=== PATIENT | male | born 1995 | race Caucasian/White ===

== ENCOUNTER 2023-02-12 12:48 | Emergency (ER) | payer BC, SELFPAY ==
[2023-02-12 13:25] VITALS: BMI 27.5
[2023-02-12 13:29] VITALS: BP 130/82; PULSE 57; RESP 16; TEMP 36.6; O2SAT 98
--- NOTE | 2023-02-12 14:05 | ED.GENADULT ---
HPI - General Adult General Chief complaint: Skin/Abscess/Foreign Body Stated complaint: enlarged lymph nodes Time Seen by Provider: 02/12/23 13:31 Source: patient, RN notes reviewed and old records reviewed Mode of arrival: ambulatory History of Present Illness HPI narrative: 28-year-old male with no significant past medical history presenting to the ED complaining of head cold x few days which progressed to right sided inflamed lymph node and sore throat. Denies fever/chills, ear pain, drainage from ear, difficulty/inability to swallow, SOB/CP, recent travel. Onset (ago): day(s) Related Data Previous Rx's Medication Instructions Recorded cefdinir 300 mg capsule 300 mg PO BID 7 days #14 caps 02/12/23 Allergies Allergy/AdvReac Type Severity Reaction Status Date / Time amoxicillin [From AUGMENTIN] Allergy Unknown DIARRHEA Verified 02/12/23 13:25 clavulanic acid Allergy Unknown DIARRHEA Verified 02/12/23 13:25 [From AUGMENTIN] Review of Systems Review of Systems: Constitutional: No Fever, No Chills ENT/Mouth: No Ear Pain, No Nasal Congestion, + Sinus Pain, No Hoarseness, + sore throat, No Rhinorrhea, No Swallowing Difficulty Cardiovascular: No Chest Pain, No SOB Respiratory: No Cough, No Sputum Gastrointestinal: No Nausea, No Vomiting, No Abdominal pain Musculoskeletal: No joint pain, No Myalgias, No Joint Swelling Skin: No Skin Lesions, No rash Neuro: No Weakness Yes all other systems are reviewed and are negative Constitutional: Constitutional: Reports as per [facility] Past Medical History Attestation statement: The following information was validated with the patient. Source: old records reviewed Social History Social History Alcohol intake: current Alcohol intake frequency: holidays/special occasions only Smoked in Last 30 Days: No Use of substances other than those prescribed or required for medical reasons: No Advance Directives: No Advance Directives Information Provided: Yes Physical Exam ED Vital Signs: Vital Signs - 24 hr 02/12/23 13:29 Temperature 97.8 F Pulse Rate 57 Respiratory Rate 16 Blood Pressure 130/82 Pulse Oximetry 98 Oxygen Delivery Method Room Air BMI result Body Mass Index 27.5 Const General: cooperative, healthy appearing and no acute distress Orientation/consciousness: patient oriented x3 Limitations: no limitations HENMT Other: + right-sided submandibular lymphadenopathy appreciated. No erythema or warmth Head: Yes normal to inspection and Yes atraumatic Ears: hearing grossly normal bilaterally, external ears normal, TM's normal bilaterally and mastoids normal General nose exam: Normal external nose present Face and sinus: Yes normal facial exam Mouth: Normal oral and palatal mucosa present, no audible dysphonia and no drooling Throat: Yes uvula midline, No peritonsillar mass, Yes posterior oropharynx abnormal (Erythematous. No exudates), No uvula laterally displaced and No uvular edema Eyes General: appearance normal, both eyes and all related structures EOM: EOMs intact bilaterally Neck Neck: Yes normal visual inspection, Yes no meningeal signs and No anterior neck swelling Resp Effort & Inspection: normal respiratory effort, no respiratory distress and no stridor Auscultation: clear to auscultation bilaterally and no wheezes Cardio Rate: regular rate Heart sounds: S1 normal heart sound present and S2 normal heart sound present Skin Rashes: no rashes Wounds: no wounds Neuro General: patient oriented x3, tone normal and no meningeal signs Cranial nerves: Yes CN's II-XII intact bilaterally Gait exam (Neuro): Normal gait present Extrem General: Yes normal to inspection Course Course Course Narrative: -1540--influenza A positive. Rapid strep negative. > due to 1 sided lymphadenopathy will treat with antibiotics. Discussed Tamiflu however patient would like to defer. Results discussed with patient including worrisome signs and symptoms and strict return precautions, and when to return to the emergency department. They verbalized understanding and feel safe for discharge at this time. Medical Decision Making Medical Decision Making [facility] Narrative: 28-year-old male with no significant past medical history presenting to the ED complaining of head cold x few days which progressed to right sided inflamed lymph node and sore throat. On exam vital signs stable, NAD, nontoxic appearing, handling secretions, no respiratory distress or compromise. Talking in complete sentences. Right-sided submandibular lymphadenopathy noted. Posterior oropharyngeal erythema appreciated. Uvula midline. No exudates. Concern for strep pharyngitis vs viral syndrome vs mononucleosis. Lower suspicion/no evidence of retropharyngeal abscess/[employer] at this time. Plan: Viral testing, rapid strep, Monospot Please refer to course for remaining clinical decision making, interpretation of labs/imaging results, and discussions with consultants and/or family members. Differential Diagnosis Differential Diagnoses: The differential diagnosis associated with the presentation includes As above Lab Data MDM Lab Attestation statement: I reviewed the patient's lab results. Labs: Lab Results 02/12/23 Range/Units 14:25 Monoscreen Negative (Negative) Influenza Type A (PCR) POSITIVE A (Negative) Influenza Type B (PCR) NEGATIVE (Negative) RSV RNA Qual (PCR) NEGATIVE (Negative) SARS-CoV-2 RNA (RT-PCR) NEGATIVE (Negative) S. pyogenes GrpA ANDREA Negative (Negative) External Record Review External record reviewed: Inpatient record, Office record, Outpatient record, Prior outpatient labs, Prior outpatient radiology, Primary care record and Outside ED record Tests considered The following testing was considered but not selected: As above Prescription Management I considered prescription management with: Pain Medication and Antibiotic Discharge Plan Discharge Clinical Impression: Influenza A, Lymphadenopathy Patient Disposition: Home, Self-Care Instructions: Lymphadenopathy (ED), Influenza (DC) Additional Instructions: You have the flu Due to your one-sided inflamed lymph nodes Cefdinir is antibiotic please take as prescribed No antibiotics are indicated at this time Make sure you are staying hydrated. Drink plenty of fluids. Rest Alternate Tylenol and Motrin at home as needed for body aches and fever Follow-up with your doctor. If symptoms persist or worsen return to the emergency department *If you are a child & not tolerating liquid or urinating for more than 6 hours, or fevers are uncontrolled with medications at home, return to the emergency department* Prescriptions: New cefdinir 300 mg capsule 300 mg PO BID 7 Days Qty: 14 0RF Referrals: Physician,None [Primary Care Provider] - Stand Alone Forms: Work/School Release
--- NOTE | 2023-02-12 14:28 | PC.NURSE ---
labs/swabs obtained and sent to lab.
[2023-02-12 14:55] LABS: IDNOW Serial# 08D9AD1C; Strep A Nucleic Acid Negative (Negative)
[2023-02-12 15:02] LABS: Monotest Negative (Negative)
[2023-02-12 15:36] LABS: Influenza A PCR POSITIVE (Negative); Influenza B PCR NEGATIVE (Negative); Resp Syncy Virus RNA Qual PCR NEGATIVE (Negative); SARS COV2 PCR INHOUSE NEGATIVE (Negative)
== END 2023-02-12 15:51 | disposition home or self-care (01) ==
PROVIDERS: Physician Assistant; Emergency Provider Emergency Medicine
DX: J10.1 Influenza due to other identified influenza virus with other respiratory manifestations (principal); R59.1 Generalized enlarged lymph nodes; Z20.822 Contact with and (suspected) exposure to COVID-19; Z79.899 Other long term (current) drug therapy; Z20.828 Contact with and (suspected) exposure to other viral communicable diseases
CPT/HCPCS: 0241U; 36415; 86308; 87651; 99283; 99284

== ENCOUNTER 2023-08-18 23:22 | Emergency (ER) | payer BC, SELFPAY ==
--- NOTE | ~2023-08-18 | XR_ITS ---
EXAMINATION: XR CHEST CLINICAL INFORMATION: Pain in xiphoid process COMPARISON: None available. TECHNIQUE: 2 AP frontal radiographs of the chest FINDINGS: Normal appearance of the cardiomediastinal structures. No effusions or pneumothoraces. Normal pattern of pulmonary vasculature. No focal pulmonary consolidation. Normal appearance of the clavicles and visualized sternum. XR/XR chest 1V IMPRESSION: Normal chest.
[2023-08-18 23:27] VITALS: BP 137/92; PULSE 66; RESP 18; TEMP 36.6; O2SAT 98; BMI 28.1
[2023-08-18 23:43] LABS: Basophils Absolute Auto 0.1 X10*3/uL (0.0-0.2); Basophils Percent Auto 0.7 % (0-2); Eosinophils Absolute Auto 0.4 X10*3/uL (0.0-0.4); Hematocrit 48.2 % (42.0-52.0); Hemoglobin 16.5 g/dl (14.0-18.0); Imm Gran Abs Auto 0.04 X10*3/uL (0.00-0.03); Imm Gran Pct Auto 0.4 % (0.0-0.4); Lymphocytes Absolute Auto 2.8 X10*3/uL (1.2-4.9); Lymphocytes Percent Auto 30.7 % (20-40); MANUAL DIFF FLAG NO; Mean Corpuscular HGB Conc 34.2 g/dl (31.0-36.0); Mean Corpuscular Hemoglobin 29.8 pg (27.0-33.0); Mean Platelet Volume 8.9 fL (9.4-12.4); Monocytes Absolute Auto 0.5 X10*3/uL (0.1-1.2); Monocytes Percent Auto 5.8 % (2-11); Neutrophils Absolute Auto 5.3 x10*3/uL (2.0-8.3); Neutrophils Percent Auto 58.4 % (45-73); Platelet Count 308 X10*3/uL (160-400); Red Blood Count 5.54 X10*6/uL (4.60-5.80); Red Cell Distribution Width 12.2 % (11.0-16.0)
[2023-08-18 23:59] LABS: Alanine Aminotransferase 149 U/L (0-40); Albumin Level 4.9 g/dL (3.5-5.0); Alkaline Phosphatase 122 U/L (39-117); Anion Gap 15 (12-20); Aspartate Amino Transferase 41 U/L (5-37); Bilirubin Total 0.9 mg/dL (0.0-1.0); Blood Urea Nitrogen 12 mg/dL (9-16); Calcium 10.2 mg/dL (8.4-10.2); Carbon Dioxide 28 mmol/L (22-29); Chloride 102 mmol/L (96-108); Creatinine Clr Calc Pharmacy 153.3; Estimated Glomerular Filt Rate > 60; Glucose Random 102 mg/dL (60-115); Potassium 3.9 mmol/L (3.3-5.1); Sodium 141 mmol/L (135-145)
[2023-08-19 00:29] VITALS: BP 145/94; PULSE 52; RESP 17; TEMP 36.4; O2SAT 98
--- NOTE | 2023-08-19 00:47 | ED.GENADULT ---
HPI - General Adult General Chief complaint: Abdominal Pain Stated complaint: ? Hernia Time Seen by Provider: 08/19/23 00:42 Source: patient Mode of arrival: ambulatory Limitations: no limitations History of Present Illness ED Provider: Dr. Tati Bruce HPI narrative: Patient comes to the emergency room complaining of feeling lump below his sternum. Patient states that he has not had any injuries, denies chest pain or shortness of breath, no abdominal pain. Patient states that he was running his hands through his abdomen a few nights ago, and noticed the heart lump in the epigastric area. Patient denies nausea vomiting or diarrhea. Related Data Previous Rx's ?Medication ?Instructions ?Recorded cefdinir 300 mg capsule 300 mg PO BID 7 days #14 caps 02/12/23 Allergies Allergy/AdvReac Type Severity Reaction Status Date / Time amoxicillin [From AUGMENTIN] Allergy Unknown DIARRHEA Verified 08/18/23 23:28 clavulanic acid Allergy Unknown DIARRHEA Verified 08/18/23 23:28 [From AUGMENTIN] Review of Systems Review of Systems: Constitutional : No Weight loss, No Fever, No Chills, No Night Sweats, No Fatigue, No Malaise ENT/Mouth : No Hearing loss, No Ear Pain, No Nasal Congestion, No Sinus Pain, No Hoarseness, No sore throat, No Rhinorrhea, No Swallowing Difficulty Eyes: No Eye Pain, No Swelling, No Redness, No Foreign Body, No Discharge, No Vision Changes Cardiovascular : No Chest Pain, No SOB, No Dyspnea on Exertion, No Orthopnea, No Edema, No Palpitations Respiratory : No Cough, No Sputum, No Wheezing, No Smoke Exposure, No Dyspnea Gastrointestinal : No Nausea, No Vomiting, No Diarrhea, No Constipation, No abdominal Pain, No Hematochezia, No Melena Genitourinary : no irregular bleeding, No Dysuria, No Urinary Frequency, No Hematuria, No Urinary Incontinence, No Urgency, No Flank Pain, No Urinary Flow Changes, No Hesitancy Musculoskeletal : No joint pain, No Myalgias, No Joint Swelling, complaining of a hard lump in the epigastric area Skin : No Skin Lesions, No rash Neuro : No Weakness, No Numbness, No Paresthesias, No Loss of Consciousness, No Dizziness, No Headache Psych : No Anxiety/Panic, No Depression, No SI/HI/AH/VH, No Social Issues, Heme/Lymph: No Bruising, No Bleeding,No Lymphadenopathy Endocrine : No Polyuria, No Polydipsia, No Temperature Intolerance [facility] Social History Social History Alcohol intake: current Alcohol intake frequency: a few times a week Smoked in Last 30 Days: No Use of substances other than those prescribed or required for medical reasons: No Advance Directives: No Advance Directives Information Provided: Yes Physical Exam ED Vital Signs: Vital Signs - 24 hr 08/18/23 23:27 08/19/23 00:29 Temperature 97.8 F 97.6 F Pulse Rate 66 52 Respiratory Rate 18 17 Blood Pressure 137/92 H 145/94 H Pulse Oximetry 98 98 Oxygen Delivery Method Room Air Room Air BMI result Body Mass Index 28.1 Const Other: Appearance: Alert. Oriented X3. No acute distress. Eyes: Pupils equal, round and reactive to light. ENT: Pharynx normal. Neck: Normal inspection. Neck supple. No lymph nodes noted. No crepitus CVS: Normal heart rate and rhythm. Pulses normal. Normal S1 and S2 Respiratory: No respiratory distress. Breath sounds normal. No Wheezing. No rales Abdomen: Soft and nontender. No rigidity. No distention. Patient showed me where he feels a hard lump, it is his xiphoid process Skin: Skin warm and dry. Normal skin color. Normal skin turgor. Extremities: No lower extremity edema. No Lacerations. No Rash Neuro: Oriented X 3. No motor deficit. No sensory deficit. Moving all extremities. No slurred speech. CN 2 through 12 grossly intact Psych: calm, cooperative, normal affect Medical Decision Making Medical Decision Making [facility] Narrative: I discussed the physical exam with the patient, the lump that he is feeling is his xiphoid process. -at this time, no further treatment needed. Patient denies any pain, no abdominal symptoms. -chest x-ray normal Lab Data [facility] Lab Attestation statement: I reviewed the patient's lab results. 08/18/23 23:38 08/18/23 23:38 Labs: Lab Results 08/18/23 Range/Units 23:38 WBC 9.0 (4.8-10.8) X10*3/uL RBC 5.54 (4.60-5.80) X10*6/uL Hgb 16.5 (14.0-18.0) g/dl Hct 48.2 (42.0-52.0) % MCV 87.0 (80.0-98.0) fL MCH 29.8 (27.0-33.0) pg MCHC 34.2 (31.0-36.0) g/dl RDW 12.2 (11.0-16.0) % Plt Count 308 (160-400) X10*3/uL MPV 8.9 L (9.4-12.4) fL Immature Gran % (Auto) 0.4 (0.0-0.4) % Neut % (Auto) 58.4 (45-73) % Lymph % (Auto) 30.7 (20-40) % [place] % (Auto) 5.8 (2-11) % Eos % (Auto) 4.0 (0-4) % Baso % (Auto) 0.7 (0-2) % Lymph # (Auto) 2.8 (1.2-4.9) X10*3/uL [place] # (Auto) 0.5 (0.1-1.2) X10*3/uL Eos # (Auto) 0.4 (0.0-0.4) X10*3/uL Baso # (Auto) 0.1 (0.0-0.2) X10*3/uL Abs Immat Gran (auto) 0.04 H (0.00-0.03) X10*3/uL Absolute Neuts (auto) 5.3 (2.0-8.3) x10*3/uL Absolute Nucleated RBC 0.000 (0.0-0.012) X10*3/uL Nucleated RBC % (auto) 0.0 (0.0-0.2) /100WBC Sodium 141 (135-145) mmol/L Potassium 3.9 (3.3-5.1) mmol/L Chloride 102 (96-108) mmol/L Carbon Dioxide 28 (22-29) mmol/L Anion Gap 15 (12-20) BUN 12 (9-16) mg/dL Creatinine 0.92 (0.5-1.4) mg/dL Estim Creat Clear Calc 153.3 Estimated GFR > 60 Random Glucose 102 (60-115) mg/dL Calcium 10.2 (8.4-10.2) mg/dL Total Bilirubin 0.9 (0.0-1.0) mg/dL AST 41 H (5-37) U/L ALT 149 H (0-40) U/L Alkaline Phosphatase 122 H (39-117) U/L Total Protein 8.0 (6.5-8.0) g/dL Albumin 4.9 (3.5-5.0) g/dL Independent Interpretation I performed an independent interpretation of an: Plain X-Ray Radiology Impression Discussion of test interpretation with radiology: I have reviewed the radiologist's reading. Radiologist Impression: Normal appearance of the cardiomediastinal structures. No effusions or pneumothoraces. Normal pattern of pulmonary vasculature. No focal pulmonary consolidation. Normal appearance of the clavicles and visualized sternum. XR/XR chest 1V IMPRESSION: Normal chest. Discharge Plan Discharge Clinical Impression: Normal abdominal exam Patient Disposition: Home, Self-Care Instructions: Normal Exam (ED) Additional Instructions: Please follow-up with your primary care physician tomorrow. If you have any worsening or new symptoms, please return to the emergency room or call 911 Prescriptions: No Action cefdinir 300 mg capsule 300 mg PO BID 7 Days Qty: 14 0RF Print Language: Greenlandic
[2023-08-19 02:13] VITALS: BP 131/65; PULSE 75; RESP 18; TEMP 36.9; O2SAT 94
[2023-08-19 02:15] VITALS: BP 131/65; PULSE 75; RESP 18; TEMP 36.9; O2SAT 94
== END 2023-08-19 02:16 | disposition home or self-care (01) ==
PROVIDERS: Emergency Provider Emergency Medicine
DX: R19.06 Epigastric swelling, mass or lump (principal); Z71.1 Person with feared health complaint in whom no diagnosis is made
CPT/HCPCS: 36415; 71045; 80053; 85025; 99283; 99284

== ENCOUNTER 2024-01-08 09:51 | Outpatient (AMB) | payer BC, SELFPAY ==
--- NOTE | 2024-01-08 10:15 | MHC.PC.OV ---
Vital Signs 01/08/24 10:27 Height 6 ft 3 in Weight 237 lb BMI 29.6 BP 118/88 Blood Pressure Location Rt brachial Position Sitting Respiration 16 Pulse 75 Pulse Source Pulse Oximeter Pulse Oximetry (%) 96 Oxygen Delivery Method Room Air Intake Visit Reasons: Est. care / needs a physical Intake Note: New patient visit Camp Manager Required: No Allergies amoxicillin [From AUGMENTIN] Allergy (Unknown, Verified 01/08/24 10:49) DIARRHEA clavulanic acid [From AUGMENTIN] Allergy (Unknown, Verified 01/08/24 10:49) DIARRHEA Medication List - Last Reconciled 01/08/24 by Beata Drake, GAS LINE REPAIRER- epinephrine 0.3 mg IM Q15M PRN Tobacco use date assessed: 01/08/24 Dental Screening Dental Screen Date: 01/08/24 Did you have a dental visit in the last 12 months?: No Did you have a dental problem in the last 6 months where you did not have access to dental care?: No Was dental information given to patient?: Patient has dentist HPI HPI Comments History of Present Illness Details The patient is a 28-year-old male presenting as a new patient to [facility] care for a CPE. Medical history is benign except recent acute allergic reaction and musculoskeletal pain. He reports a significant allergic reaction in July, characterized by diffuse urticaria persisting for two to three weeks. This episode occurred suddenly while dining at a restaurant with family, resulting in symptoms of nausea, pallor, profuse sweating, and bradycardia. The cause of the allergy remains unidentified, and the patient has been prescribed an EpiPen for emergency use. The patient has a known allergy to amoxicillin and amoxicillin-clavulanate (Augmentin). Additionally, the patient experiences pain in the outer right calf, which emerged after an increase in physical activity and possibly linked to running. These symptoms began in early October and were exacerbated by exertion. The patient has attempted home management with icing and ceased high-impact activities like running. 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 - Family includes three brothers and two sisters, all in good health. Denies significant family hx other than Dad with HTN Health Maintenance - Tetanus vaccination discussed, not up to date; recommended for protection due to occupational risk. Declined flu vaccine - Referral for allergy testing planned. - Routine labs for diabetes and kidney disease screening discussed but not recently performed. Physical Exam General: Well developed, well nourished, in no acute distress. Appears stated age. Head: Normocephalic, atraumatic. Eyes: Pupils are equal, round and reactive to light and accommodation. Conjunctivae are clear. Vision grossly normal. Ears: Tympanic membranes clear bilaterally, external auditory canal within normal limits. Nose: Patent, without discharge. Mouth: There are no ulcers or lesions noted. No inflammation, no post nasal drip, no plaques nor exudates. Neck: Supple, no adenopathy or thyromegaly. Lungs: Clear to auscultation bilaterally. No rales, rhonchi or wheeze noted. Good air flow in all hdz. Heart: Regular rate and rhythm. No murmurs, click, rubs or gallops are noted. Abdomen: Bowel sounds present in all quadrants. The abdomen is soft, nontender, with no masses or organomegaly noted. No hernias are noted. Musculoskeletal: Joints are nontender, without swelling, redness, or effusions. Range of motion is observed to be normal. Patient reports pain in the outer part of the right calf, possibly due to a strain or tear, exacerbated by running. Pulses: Peripheral pulses are equal and palpable bilaterally. Extremities: No clubbing, cyanosis nor edema is noted. Neurologic: Gait and station normal. Cranial Nerves 2-12 intact. Motor strength grossly symmetrical and intact. No sensory loss. Balance normal. Skin: No rashes, ulcers, or lesions noted. Turgor is good. Skin color is good. Hair and nails are without abnormalities. Psych: Normal eye contact, affect and mood appropriate, and normal interactions. Patient is alert and appropriate to context. Depression screen negative. No anxiety reported. Plan - Acute Allergic Reaction with Anaphylaxis: Referral for allergy testing with [facility] in progress to identify causative agent. Continued prescription for EpiPen recommended for emergency use due to risk of anaphylactic reactions. - Calf Muscle Strain: Advise avoidance of running and other high-impact activities. Recommend gentle stretching and gradual reintroduction of physical activity. Consider massage therapy. Monitor for improvement. - General Health Maintenance: Administer tetanus vaccine due to occupational hazards. Recommend routine bloodwork for general wellness. Patient was informed and verbally consented to the use of an ambient scribe for clinic note documentation during this visit. Discussion Notes I reviewed the significance of the patient's acute allergic reaction, emphasizing the necessity of carrying an EpiPen. We discussed the potential benefits of allergy testing to prevent future episodes. I explained the management of the calf muscle strain, recommending rest and stretching to facilitate recovery. The importance of receiving a tetanus shot was highlighted, particularly due to his job-related risks. We agreed on the necessity of planned laboratory tests for routine health monitoring. Follow-up contact from the allergy referral team was anticipated, ensuring coordinated care. Patient Instructions - Carry an EpiPen at all times in case of another severe allergic reaction. - Follow through with allergy testing as scheduled. - Avoid running and apply ice to the affected calf area; engage in light stretching exercises. - Receive a tetanus vaccine today. - Encourage routine labs to monitor general health. - Return to clinic if symptoms worsen or new symptoms arise. 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 1. Little interest or pleasure in doing things: not at all 2. Feeling down, depressed, or hopeless: not at all 3. Trouble falling or staying asleep, or sleeping too much: not at all 4. Feeling tired or having little energy: not at all 5. Poor appetite or overeating: not at all 6. Feeling bad about yourself - or that you are a failure or have let yourself or your family down: not at all 7. Trouble concentrating on things, such as reading the newspaper or watching television: not at all 8. Moving or speaking so slowly that other people could have noticed. Or the opposite - being so fidgety or restless that you have been moving around a lot more than usual: not at all 9. Thoughts that you would be better off or of hurting yourself in some way: not at all Total score: 0 Depression Screening Interpretation: Negative Depression Screening Done: Yes 37151 - PHQ-9 Billing: Yes Source: Developed by Drs. Lester Moore, Allie Pitts, Lino Mayes and colleagues, with an educational chung from [employer]. Thrive Questionnaire Date Thrive assessed: 01/08/24 I am a: Patient What is your living situation today?: I have a steady place to live Within the past 12 months, did the food you bought not last and you didn't have the money to get more?: Never true Within the past 12 months, did you worry whether your food would run out before you got money to buy more?: Never true Do you have trouble paying for medicines?: No Do you have trouble getting transportation to medical appointments?: No Do you have trouble paying your heating and electricity bill?: No Do you have trouble taking care of your child, family member or friend?: No Do you have trouble with day-to-day activities such as bathing, preparing meals, shopping, managing finances, etc.?: No Are you currently unemployed and looking for a job?: No Are you interested in more education?: No Please select the resources that you would like help with: None Currently or been in a relationship where the following occur: No concerns reported THRIVE Score: 0 AUDIT C Alcohol Use Questionnaire (AUDIT-C) 1. How often do you have a drink containing alcohol?: 2-4 times a month 2. How many drinks containing alcohol do you have on a typical day when you are drinking?: 5 or 6 3. How often do you have six or more drinks on one occasion?: Monthly Total Score: 6 Score Reviewed/Action Taken: Yes JARAD-7 AMB Questionnaire JARAD-7 Date JARAD - 7 assessed: 01/08/24 Feeling nervous, anxious, or on edge: 0 = Not at all Not being able to stop or control worryin = Not at all Worrying too much about different things: 0 = Not at all Trouble relaxin = Not at all Being so restless that it is hard to sit still: 0 = Not at all Becoming easily annoyed or irritable: 0 = Not at all Feeling afraid as if something awful might happen: 0 = Not at all Total JARAD-7 score (0-4 normal; 5-9 mild; 10-14 moderate; 15-21 severe): 0 Source: Developed by Drs. Lester Moore, Allie Pitts, Lino Mayes and colleagues, with an educational chung from [employer]. JARAD-7 Assessment Billing JARAD-7 Assessment Tool: JARAD-7 Assessment 51694 Physical exam (Primary Care) Vital Signs: Last Vital Signs Pulse 75 01/08/24 10:27 Resp 16 01/08/24 10:27 BP 118/88 01/08/24 10:27 Pulse Ox 96 01/08/24 10:27 Oxygen Delivery Method Room Air 01/08/24 10:27 BMI result Body Mass Index 29.6 Tobacco/Smoking Status: Tobacco use Status Tobacco use date assessed 01/08/24 01/08/24 10:24 Patient Tobacco Use Status Never used Tobacco 01/08/24 10:24 e-Cigarette/Vaping Use Never Used 01/08/24 10:24 PHQ-9: PHQ-9 Score PHQ-9: Total score 0 01/08/24 11:17 Depression Screening Interpretation: Negative Thrive Assessment: Date of Thrive Assessment Date Thrive assessed 01/08/24 01/08/24 10:16 Currently or been in a relationship where the following occur: No concerns reported Immunizations Boostrix Tdap 2.5 Lf unit-8 mcg-5 Lf/0.5 mL intramuscular syringe Performing Provider: BULL Means Performing Location: [facility] Family Medicine Administered by: Funmi Lubin RN on 01/08/24 11:16 Dose Route Admin Location Dispensed Lot Number Expiration Date [facility] Manager Licensing 0.5 mL IM Right Deltoid 0.5 mL [id number] 11/13/24 27376-093-37 Timetric VIS Given Date VIS Provided VIS Publication Date 01/08/24 Single Vaccine 20 Eligibility Eligibility Date Funding Source Not [facility] Eligible 01/08/24 Private Coding Level of Care Code New Pt Prev Care 18-39yr(80172 Diagnoses Encounter for general adult medical examination without abnormal findings Z00.00 Laboratory exam ordered as part of routine general medical examination Z00.00 Rupture of right gastrocnemius tendon, initial encounter S86.111A Encounter type: initial encounter Laterality: right Need for Tdap vaccination Z23 Influenza vaccination declined Z28.21 History of anaphylaxis Z87.892 Additional Codes JARAD-7 Assessment Billing - JARAD-7 Assessment Tool: JARAD-7 Assessment 74941 ([id number]) PHQ-9 - 49631 - PHQ-9 Billing: Yes ([id number]) Assessment & Plan Assessment & Plan (1) Encounter for general adult medical examination without abnormal findings: Code(s): Z00.00 - Encounter for general adult medical examination without abnormal findings (2) Laboratory exam ordered as part of routine general medical examination: Code(s): Z00.00 - Encounter for general adult medical examination without abnormal findings Category: Medical (3) Gastrocnemius muscle tear: Comment: RIGHT 10/2023 Code(s): S86.119A - Strain of other muscle(s) and tendon(s) of posterior muscle group at lower leg level, unspecified leg, initial encounter Category: Medical Qualifiers: Encounter type: initial encounter Laterality: right Qualified Code(s): S86.111A - Strain of other muscle(s) and tendon(s) of posterior muscle group at lower leg level, right leg, initial encounter (4) Need for Tdap vaccination: Code(s): Z23 - Encounter for immunization (5) Influenza vaccination declined: Code(s): Z28.21 - Immunization not carried out because of patient refusal (6) History of anaphylaxis: Code(s): Z87.892 - Personal history of anaphylaxis Category: Medical Plan . Orders: Orders Lipid Panel Today Z00.00 - Encounter for general adult medical examination without abnormal findings TDaP Immunization Today Z23 - Encounter for immunization Comprehensive [place]. Panel Fast Today Z00.00 - Encounter for general adult medical examination without abnormal findings Hemoglobin A1c Today Z00.00 - Encounter for general adult medical examination without abnormal findings Microalbumin, Random (w Creat) Today Z00.00 - Encounter for general adult medical examination without abnormal findings TSH reflex Free T4 Today Z00.00 - Encounter for general adult medical examination without abnormal findings Referrals Allergy & Immunology Referral Z87.892 - Personal history of anaphylaxis Medications: Discontinued cefdinir Discontinued Reason: Patient no longer taking 300 mg PO BID 7 days 14 caps 0RF Patient Instructions: Walk-In Care (Urgent Care): We Make it Easy Walk-in for urgent medical issues such as: ? Seasonal Allergies ? Insect Bites ? Cough ? Diarrhea ? Acute Asthma Attacks ? Back, Knee or Joint Pain ? Ear Infection ? Fever without a Rash ? Headaches ? Nausea ? [place], Rash or Skin Irritation ? Sore Throat ? Sports Physicals ? Vomiting Most insurances are accepted. Patients do not need to be part of the [facility] to seek care at the walk-in clinic. Locations [facility] , [place] [address] ? [phone] [facility] Walk-In Care in [place] provides services to ages 18 and over. Open Thursday-Thursday: 8 a.m. to 5 p.m. and Thursday: 9 a.m. to 3 p.m.* *Hours may vary due to staffing availability. To confirm Walk-In Care hours in [place], please call [phone]. [address] [place] [address] ? [phone] [facility] Walk-In Care in [place] provides services to ages 12 and over. Open Thursday-Thursday: 8 a.m. to 5 p.m. Hours may vary due to staffing availability. To confirm Walk-In Care hours in [place], please call [phone]. LABORATORY SERVICES: [facility] Lab ? Primary Location [address] [place] [address] Thursday through Thursday 6:00 AM ? 5:00 PM Thursday 7:00 AM ? 11:00 AM* [phone] The [facility] Lab is centrally located near the front entrance of the Medical Center for easy outpatient access. Convenient parking is provided for outpatients. *Hours may vary due to staffing availability. To confirm Laboratory hours for any location, please call [phone]. Offsite Location For your convenience, we offer offsite laboratory draw stations at the following locations: [address] [place] [address] ? [facility] [address], [address], [place] Thursday through Thursday 7:30 AM ? 1:00 PM* [phone] *Hours may vary due to staffing availability. To confirm Laboratory hours for any location, please call [phone]. [place] ? [facility] [address] [facility] Suki Mullins Thursday through Thursday 6:00 AM ? 3:30 PM* Thursday 6:30 AM ? 3 PM* [phone] *Hours may vary due to staffing availability. To confirm Laboratory hours for any location, please call [phone]. [address] [facility] Thursday through Thursday 7:30 AM ? 4:00 PM* [phone] *Hours may vary due to staffing availability. To confirm Laboratory hours for any location, please call [phone]. [facility] Thursday through 9:00 AM ? 4:00 PM* *Hours may vary due to staffing availability. To confirm Laboratory hours for any location, please call [phone]. Appointments are not necessary. Walk-ins are welcome. Like all the departments throughout the [facility], our Lab undergoes frequent reviews to ensure the quality and accuracy of test results, and our staff takes special pride in its status as a nationally accredited facility. Patient Portal: ONE PATIENT. ONE RECORD. BETTER CARE. [facility] has a fully integrated, cutting-edge mobile electronic health information system that has revolutionized the way we care for our patients and manage our organization. This system improves communication and coordination enabling us to provide safe, higher-quality care, and an overall positive experience for staff and patients. Our first priority, as always, is to deliver the highest quality care possible. The system is running in the background supporting that priority. This portal is for all [facility] services and practices. If you are experiencing any technical difficulties with enrolling or logging into the Patient Portal please complete the [facility] Patient Portal Technical Support Form. [facility] now offers a new secure on-line interactive tool for patients to review their health information ? Patient Portal. This interactive web portal will enable patients and their families to take an active role in their care by providing easy, secure access to their health information via the internet. The Patient Portal provides patients with instant access to their health information, including laboratory results, medications, allergies, demographic information, visit history, and more. In addition to managing their own care, parents and health care proxies with authorized consent will appreciate the ability to access the records of those individuals for whom they provide care. Please note: if you wish to gain access (Proxy) to another patient?s portal, you will be required to come to the Medical Records Department in person at [facility]. Both the patient giving proxy access and the proxy will need to provide photo identification and complete the appropriate authorization. The Patient Portal also allows track their appointments online. The [facility] Patient Portal also saves patients time by allowing them to submit updates to their demographic and contact information prior to their visits. Portal email notifications will also alert patients to any new activity on their portal, such as test results and new appointments. In order to initially enroll in the [facility] Patient Portal, you will need to enter some required information including the following: ? your [facility] Medical Record number ? your personal home email address ? name ? date of Please note: In order to enroll in the [facility] Patient Portal, we need to have your email address on file in your electronic medical record. The email address needs to be specific for one person (yourself) in order for your Portal enrollment to be successful. You can update your email address in person with our Registration staff when you are registering for a hospital visit. Otherwise, you will need to come to the Health Information Management (Medical Records) Department at [facility]. We are open from Thursday ? Thursday from 7:30 a.m. ? 4:30 p.m. You will be required to present a photo id. Once you have successfully enrolled in the Patient Portal, you will receive a one-time user id and password for the Portal, sent to your email address. This will allow you to log into the Patient Portal within 99 hrs and reset your own logon id and password, and define personal security questions. Once your permanent login and password have been set, you can log into the [facility] Patient Portal at any time via the blue button above or from the Portal Logon button on any page of the [facility] website. [facility] encourage all of our patients to enroll in Patient Portal as it presents a valuable opportunity for patients and their families to actively participate in their care and stay healthy Welcome to [facility]. We look forward to working with you. Health screenings for men ages 40 to 64 You should visit your health care provider regularly, even if you feel healthy. The purpose of these visits is to: Screen for medical issues Assess your risk for future medical problems Encourage a healthy lifestyle Update vaccinations and other preventive care services Help you get to know your provider in case of an illness Information Even if you feel fine, you should still see your provider for regular checkups. These visits can help you avoid problems in the future. For example, the only way to find out if you have high blood pressure is to have it checked regularly. High blood sugar and high cholesterol level also may not have any symptoms in the early stages. Simple blood tests can check for these conditions. There are specific times when you should see your provider or receive specific health screenings. The [place] Preventive Services Task Force publishes a list of recommended screenings. Below are screening guidelines for men ages 40 to 64. BLOOD PRESSURE SCREENING Have your blood pressure checked at least once every year. Watch for blood pressure screenings in your area. Ask your provider if you can stop in to have your blood pressure checked. Ask your provider if you need your blood pressure checked more often if: You have diabetes, heart disease, kidney problems, or are overweight or have certain other health conditions You have a first-degree relative with high blood pressure You are Black Your blood pressure top number is from 120 to 129 mm Hg, or the bottom number is from 70 to 79 mm Hg If the top number is 130 mm Hg or greater or the bottom number is 80 mm Hg or greater, this is considered stage 1 hypertension. Schedule an appointment with your provider to learn how you can lower your blood pressure. Effects of age on blood pressure CHOLESTEROL SCREENING Cholesterol screening should begin at age 35 for men with no known risk factors for coronary heart disease. Repeat cholesterol screening should take place: Every 5 years for men with normal cholesterol levels More often if changes occur in lifestyle (including weight gain and diet) More often if you have diabetes, heart disease, kidney problems, or certain other conditions COLORECTAL CANCER SCREENING If you are under age 45, talk to your provider about getting screened. You may need to be screened if you have a strong family history of colon cancer or polyps. Screening may also be considered if you have risk factors such as a history of inflammatory bowel disease or polyps. If you are age 45 to 75, you should be screened for colorectal cancer. There are several screening tests available: A stool-based fecal occult blood (gFOBT) or fecal immunochemical test (FIT) every year A stool sDNA test every 1 to 3 years Flexible sigmoidoscopy every 5 years or every 10 years with stool testing FIT done every year CT colonography (virtual colonoscopy) every 5 years Colonoscopy every 10 years You may need a colonoscopy more often if you have risk factors for colorectal cancer, such as: Ulcerative colitis A personal or family history of colorectal cancer A history of growths in your colon called adenomatous polyps DENTAL EXAM Go to the dentist once or twice every year for an exam and cleaning. Your dentist will evaluate if you have a need for more frequent visits. DIABETES SCREENING All adults who do not have risk factors for diabetes should be screened starting at age 35 and repeated every 3 years. If you have other risk factors for diabetes, such as a first degree relative with diabetes, overweight or obesity, high blood pressure, prediabetes, or a history of heart disease, you may be tested more often. If you are overweight and have other risk factors, such as high blood pressure and are planning to become , screening is recommended. EYE EXAM Have an eye exam every 2 to 4 years ages 40 to 54 and every 1 to 3 years ages 55 to 64. Your provider may recommend more frequent eye exams if you have vision problems or glaucoma risk. Have an eye exam that includes an examination of your retina (back of your eye) at least every year if you have diabetes. IMMUNIZATIONS Commonly needed vaccines include: Flu shot: get one every year COVID-19 vaccine: ask your provider what is best for you Tetanus-diphtheria and acellular pertussis (Tdap) vaccine: have as one of your tetanus-diphtheria vaccines if you did not receive it as an adolescent Tetanus-diphtheria: have a booster (or Tdap) every 10 years Varicella vaccine: receive 2 doses if you never had chickenpox or the varicella vaccine and were born in 1979 or after Hepatitis B vaccine: receive 2, 3, or 4 doses, depending on your exact circumstances, if you did not receive these as a child or adolescent, until age 59 Shingles (herpes zoster) vaccine: at or after age 50 Ask your provider if you should receive other immunizations, especially if you have certain medical conditions, such as diabetes or are at increased risk for some diseases such as pneumonia. INFECTIOUS DISEASE SCREENING Screening for hepatitis C: all adults ages 18 to 79 should get a one-time test for hepatitis C. Screening for human immunodeficiency virus (HIV): all people ages 15 to 65 should get a one-time test for HIV. Depending on your lifestyle and medical history, you may need to be screened for infections such as syphilis, chlamydia, and other infections. LUNG CANCER SCREENING You should have an annual screening for lung cancer with low-dose computed tomography (LDCT) if: You are age 50 to 80 years AND You have a 20 pack-year smoking history AND You currently smoke or have quit within the past 15 years OSTEOPOROSIS SCREENING If you are age 50 to 64 and have risk factors for osteoporosis, you should discuss screening with your provider. Risk factors can include long-term steroid use, low body weight, smoking, heavy alcohol use, having a fracture after age 50, or a family history of hip fracture or osteoporosis. Osteoporosis PHYSICAL EXAM All adults should visit their provider from time to time, even if they are healthy. The purpose of these visits is to: Screen for diseases Assess risk of future medical problems Encourage a healthy lifestyle Update vaccinations and other preventive care services Maintain a relationship with a provider in case of an illness Your height, weight, and body mass index (BMI) should be checked at every exam. During your exam, your provider may ask you about: Depression and anxiety Diet and exercise Alcohol and tobacco use Safety, such as use of seat belts and smoke detectors Your medicines and risk for interactions PROSTATE CANCER SCREENING If you're 55 through 69 years old, before having the test, talk to your provider about the pros and cons of having a PSA test. Ask about: Whether screening decreases your chance of dying from prostate cancer. Whether there is any harm from prostate cancer screening, such as side effects from testing or overtreatment of cancer when discovered. Whether you have a higher risk of prostate cancer than others. If you are age 55 or younger, screening is not generally recommended. You should talk with your provider about if you have a higher risk for prostate cancer. Risk factors include: Having a family history of prostate cancer (especially a brother or father) Being If you choose to be tested, the PSA blood test is repeated over time (yearly or less often), though the best frequency is not known. Prostate examinations are no longer routinely done on men with no symptoms. Prostate cancer SKIN EXAM Your provider may check your skin for signs of skin cancer, especially if you're at high risk. People at high risk include those who have had skin cancer before, have close relatives with skin cancer, or have a weakened immune system. TESTICULAR EXAM The [place] Preventive Services Task Force (USPSTF) now recommends against performing testicular self-exams. Doing testicular self-exams has been shown to have little to no benefit.
[2024-01-08 10:27] VITALS: BP 118/88; PULSE 75; RESP 16; O2SAT 96; BMI 29.6
== END 2024-01-08 11:11 | disposition home or self-care (01) ==
PROVIDERS: Visit Provider Nurse Practitioner Family
DX: Z00.00 Encounter for general adult medical examination without abnormal findings (principal); S86.111A Strain of other muscle(s) and tendon(s) of posterior muscle group at lower leg level, right leg, initial encounter; Z23 Encounter for immunization; Z28.21 Immunization not carried out because of patient refusal; Z87.892 Personal history of anaphylaxis

== ENCOUNTER 2024-01-08 09:51 | Outpatient (REF) | payer BC, SELFPAY | END 2024-01-08 09:52 | disposition home or self-care (01) | LOC: HO.LAB 09:51 | PROVIDERS: Visit Provider Nurse Practitioner Family | DX: Z00.00 Encounter for general adult medical examination without abnormal findings (principal); Z23 Encounter for immunization | CPT/HCPCS: 90471; 90715; 96127 ==

== ENCOUNTER 2024-01-08 11:14 | Outpatient (REF) | payer BC, SELFPAY ==
[2024-01-08 14:30] LABS: Estimated Average Glucose 105 mg/dL; Hemoglobin A1c % 5.3 % (<6.0); Total Hemoglobin (HGBA1C) 4096.0469 umol/L
[2024-01-08 14:38] LABS: Creatinine Urine 233.57 mg/dL; Microalbum/Creatinine Ratio Ur 14.5 ug/mg cr (<30)
[2024-01-08 14:41] LABS: Alanine Aminotransferase 298 U/L (0-40); Albumin Level 4.8 g/dL (3.5-5.0); Anion Gap 12 (12-20); Aspartate Amino Transferase 103 U/L (5-37); Bilirubin Total 0.4 mg/dL (0.0-1.0); Blood Urea Nitrogen 11 mg/dL (9-16); Calcium 10.2 mg/dL (8.4-10.2); Carbon Dioxide 29 mmol/L (22-29); Chloride 102 mmol/L (96-108); Cholesterol 265 mg/dL (<200); Estimated Glomerular Filt Rate > 60; Glucose Fasting 95 mg/dL (60-99); HDL Cholesterol 52 mg/dL (>40); LDL Cholesterol Calculated 197 mg/dL (<100); Potassium 4.4 mmol/L (3.3-5.1); Sodium 139 mmol/L (135-145); Total Protein 7.7 g/dL (6.5-8.0); Triglycerides 81 mg/dL (<150)
[2024-01-08 14:57] LABS: TSH reflex Free T4 1.53 uIU/mL (0.32-4.0)
[2024-01-08 15:28] LABS: Hematocrit 45.8 % (42.0-52.0); Mean Corpuscular HGB Conc 34.9 g/dl (31.0-36.0); Mean Corpuscular Hemoglobin 30.4 pg (27.0-33.0); Mean Corpuscular Volume 86.9 fL (80.0-98.0); Mean Platelet Volume 9.2 fL (9.4-12.4); Platelet Count 348 X10*3/uL (160-400); Red Blood Count 5.27 X10*6/uL (4.60-5.80); Red Cell Distribution Width 11.9 % (11.0-16.0); White Blood Count 5.9 X10*3/uL (4.8-10.8)
[2024-01-08 15:55] LABS: Ferritin 198 ng/mL (20-250)
[2024-01-08 18:37] LABS: Alkaline Phosphatase 116 U/L (39-117)
== END 2024-01-08 11:15 | disposition home or self-care (01) ==
LOC: HO.WFDLDS 11:14
PROVIDERS: Visit Provider Nurse Practitioner Family
DX: Z00.00 Encounter for general adult medical examination without abnormal findings (principal); R79.89 Other specified abnormal findings of blood chemistry
CPT/HCPCS: 36415; 80053; 80061; 82043; 82570; 82728; 83036; 84443; 85027

== ENCOUNTER → 2024-06-17 15:42 | Outpatient (AMB) | payer BC, SELFPAY ==
--- NOTE | 2024-06-17 15:42 | MHC.OFFVIS ---
Intake Visit Reasons: Abnormal findings of bld chemistry Intake Note: Waqar presents in the office as a new patient telehealth. CC: He states that he is not having any GI concerns or symptoms. 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 Patient does not report of 90 abdominal pain, nausea, vomiting, change in appetite, no unintentional weight loss. He has had abnormal LFTs since 2023. He occasionally has alcohol 2 to 3 times a week, 3-5 drinks per session. No family history of liver issues. No current or prior drug use. No [id number] medications. 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 [employer] Current occupational exposures/hazards: No Cognitive needs: No Hearing needs: No Vision needs: No Review of Systems Const All systems reviewed & are unremarkable except as noted in HPI and below Physical Exam Vital Signs: Video visit: No acute distress No icterus noted No facial asymmetry Speaking in full sentences Telehealth Telehealth [facility] Location of provider rendering services: practice address Location of patient: address on file Patient Identification confirmed using: Name, : Yes Telehealth method: video Patient verbally consented to treatment: Yes Patient verbally consented to billing insurance company: Yes Patient informed of any privacy concerns related to visit: Yes Minutes spent on Phone/Video with Pt.: 7 Assessment & Plan Assessment & Plan (1) Elevated LFTs: Code(s): R7. - Other specified abnormal findings of blood chemistry Category: Medical (2) Hyperlipidemia: Code(s): E78.5 - Hyperlipidemia, unspecified Category: Medical Plan Reviewed with the patient that 1st order of business will be due evaluate for cause of underlying inflammation of the liver. Blood work and ultrasound has been ordered. Fib 4 is 0.51, argues against advanced fibrosis at this time. Plan: -labs and ultrasound as ordered -follow-up in 2 months to review results and further treatment Orders: Orders Complete Blood Count no Diff Today - Other specified abnormal findings of blood chemistry DALILA Reflex Titer and Pattern Today - Other specified abnormal findings of blood chemistry Ceruloplasmin Today R7. - Other specified abnormal findings of blood chemistry Ferritin Today R7. - Other specified abnormal findings of blood chemistry Hepatitis A IgG Today . - Other specified abnormal findings of blood chemistry Hepatitis B Core Antibody Today . - Other specified abnormal findings of blood chemistry Hepatitis C Antibody Today R7. - Other specified abnormal findings of blood chemistry Hepatitis B Surface Antigen Today R7. - Other specified abnormal findings of blood chemistry Immunoglobulin A Today R7. - Other specified abnormal findings of blood chemistry Liver Kidney Microsomal Ab Today R7. - Other specified abnormal findings of blood chemistry Mitochondrial Antibody Today R7. - Other specified abnormal findings of blood chemistry Lipid Panel Today E78.5 - Hyperlipidemia, unspecified Comprehensive Met. Panel Today - Other specified abnormal findings of blood chemistry Alpha 1 Anti-trypsin Today . - Other specified abnormal findings of blood chemistry Alpha Fetoprotein Today R7. - Other specified abnormal findings of blood chemistry Hemoglobin A1c Today R7. - Other specified abnormal findings of blood chemistry Hepatitis B Surface Antibody Today R7. - Other specified abnormal findings of blood chemistry HIV Ab/Ag Today R7. - Other specified abnormal findings of blood chemistry IRON PROFILE Today . - Other specified abnormal findings of blood chemistry US abdomen complete Today - Other specified abnormal findings of blood chemistry Coding Level of Care Code Tele New Pt Level 4 (27440) Diagnoses Elevated LFTs Hyperlipidemia E78.5
--- OUTSIDE RECORDS SUMMARY | 2024-06-17 15:44 | XMS_ITS | Data Portability ---
Author Organization [facility], [address] Address [address] [place] [address] Assessment No assessment recorded. Plan of Treatment Reminders Order Date Submit Date Provider Last Modified By Organization Details Last Modified Time Details Appointments None record ed. Lab None record ed. Referral None record ed. Procedures None record ed. Surgeries None record ed. Imaging None record ed. Medication Orders None record ed. Patient TargetsNo targets recorded. Patient InstructionsNo instructions recorded. Reason for Referral None Reported. Medical Equipment None Reported. Medications Name Sig Start Date Stop Date Status Note LastModified by Organization Details LastModified Time ketoconazole 2 % shampoo PLEASE SEE ATTACHED FOR DETAILED DIRECTIONS active Not Available Not Available N ot Available prednisone 20 mg tablet TAKE 2 TABLETS BY MOUTH DAILY,X4 DAYS,INSTR: START 09/13/23 active Not Available Not Available No t Available epinephrine 0.3 mg/0.3 mL injection, auto-injecto r INJECT INTRAMUSCUL AR ONCE active Not Available Not Available No t Available cefdinir 300 mg capsule TAKE 1 CAPSULE BY MOUTH TWICE A DAY FOR 7 DAYS active Not Available Not Available No t Available Vitals None Recorded Social History None recorded. Functional Status None recorded. Mental Status None recorded. Family History Nothing Reported. Medical History No medical history recorded. Past Encounters Encounter ID Performer Location Encounter Start Date Encounter Closed Date Diagnosis/Indication Diagnosis SNOMED-CT Code Diagnosis ICD10 Code Diagnosis [facility] [id number] [facility] [address] [place] [phone] 01/28/2020 12:51:04 01/28/2020 18:00:42 [id number] [facility] [address] [place] [id number] 01/23/2020 13:12:38 01/23/2020 16:05:57 [id number] [address] [address] [address] [facility] [address] [place] [address] 09/30/2019 14:33:00 09/30/2019 16:18:57 [id number] 2099[facility] [address] [address] 09/09/2021 08:16:26 09/09/2021 08:47:04 [id number] [address] [facility] [address] [place] [address] 05/22/2017 10:05:43 05/22/2017 11:56:38 [id number] ALICIA RUBIN MD [address] [address] 11/20/2023 15:56:13 11/20/2023 17:06:51 Physical examination [id number] Z04.9 Health Concerns Section Related Observation LastModified by Organization Detai ls LastModified Time None Recorded Concern Status LastModified by Organization Details LastModified Time None Recorded Advance Directives Directive None Recorded Payers Encounter Date Sequence Insurance Name Policy Number Policy Espinosa Covered Member ID Espinosa Member ID Guarantor Name 09/30/2019 1 [place] [id number] Waqar Lombardi [id number] Waqar Lombardi 01/23/2020 1 [place] [id number] Waqar Lombardi [id number] Waqar Lombardi 01/28/2020 1 [place] [id number] Waqar Lombardi [id number] Waqar Lombardi 11/20/2023 OC-PAY AT TIME OF SERVICE 2022 Waqar Lombardi OTHER OTHER Waqar Lombardi Notes Date Note Type Note Provider Name and Address Organization Details Recorded Time 11/20/2023 text/html Patient presents for a physical with no current complaints. Please see physical form for further documentation. ALICIA RUBIN MD [address] [place], [address], [place] - [facility] 11/20/2023 17:05:24
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
== END ==
PROVIDERS: PCP Nurse Practitioner Family; Visit Provider Internal Medicine
DX: R74.01 Elevation of levels of liver transaminase levels (principal); E78.5 Hyperlipidemia, unspecified
CPT/HCPCS: 99203